=== PATIENT | female | born 1975 | race Caucasian/White ===

== ENCOUNTER 2021-10-02 21:23 | Day surgery (SDC) | payer OTHER ==
[2021-09-29 09:25] VITALS: BMI 24.2
[~2021-10-02 21:23] MED LIST: BACITRACIN 15 GM TUBE TOPICAL OINTMENT ONE; BUPIVACAINE HCL 100 ML ONE; EPINEPHrine/PF 1 MG/1 ML (1:1,000) AMPULE ONE; GENTAMICIN SO4 80 MG/2 ML VIAL ONE; GLYCOPYRROLATE 0.2 MG/1 ML VIAL ONE; LACTATED RINGERS SOLUTION 1,000 ML IV SCH; LIDOCAINE HCL 1%, 10 MG/ML (20ML VIAL) ONE; MIDAZOLAM HCL 2 MG/2 ML SINGLE DOSE VIAL ONE; ONDANSETRON 4 MG/2 ML VIAL IVPB PRN; ONDANSETRON 4 MG/2 ML VIAL IVPUSH PRN; ONDANSETRON 4 MG/2 ML VIAL ONE; PROMETHAZINE HCL 25 MG/1 ML VIAL IVPUSH PRN; ceFAZolin SODIUM 1 GM VIAL ONE; fentaNYL CITRATE 250 MCG/5 ML VIAL ONE; oxyCODONE HCL 5 MG TABLET PO PRN
[2021-10-03 06:29] VITALS: BP 107/45; PULSE 52; TEMP 98.9
[2021-10-03] MEDS ORDERED: ACETAMINOPHEN 325 MG TABLET (FP) PO ONE (07:30)
== END 2021-10-03 08:05 | disposition home or self-care (01) ==
LOC: FASUSAT 21:23 → FM/S 21:24 → FASUSAT 10-03 08:05
PROVIDERS: ATTEND Plastic Surgery
PROC: 0HRV0JZ Replacement of Bilateral Breast with Synthetic Substitute, Open Approach (ICD-10-PCS; 2021-10-02)
PROC: 0J083ZZ Alteration of Abdomen Subcutaneous Tissue and Fascia, Percutaneous Approach (ICD-10-PCS; 2021-10-02)
PROC: 0J073ZZ Alteration of Back Subcutaneous Tissue and Fascia, Percutaneous Approach (ICD-10-PCS; 2021-10-02)
PROC: 0J0M3ZZ Alteration of Left Upper Leg Subcutaneous Tissue and Fascia, Percutaneous Approach (ICD-10-PCS; 2021-10-02)
PROC: 0J0L3ZZ Alteration of Right Upper Leg Subcutaneous Tissue and Fascia, Percutaneous Approach (ICD-10-PCS; 2021-10-02)
PROC: 0WQF0ZZ Repair Abdominal Wall, Open Approach (ICD-10-PCS; 2021-10-02)
PROC: 0HNV0ZZ Release Bilateral Breast, Open Approach (ICD-10-PCS; principal; 2021-10-02 13:46)
PROC: 0HPU0JZ Removal of Synthetic Substitute from Left Breast, Open Approach (ICD-10-PCS; 2021-10-02 13:46)
PROC: 0HPT0JZ Removal of Synthetic Substitute from Right Breast, Open Approach (ICD-10-PCS; 2021-10-02 13:46)
DX: T85.43XA Leakage of breast prosthesis and implant, initial encounter (principal); Y82.8 Other medical devices associated with adverse incidents; Y92.9 Unspecified place or not applicable; E88.1 Lipodystrophy, not elsewhere classified; K42.9 Umbilical hernia without obstruction or gangrene
CPT/HCPCS: 15877; 15879; 19330; 19342; 19370; 49585; L8600; 84703; 88300-TC; 94760